=== PATIENT | female | born 2000 | race Caucasian/White ===

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

== ENCOUNTER 2021-01-04 12:50 | Outpatient (CLI) | payer OTHER ==
[2021-01-04 14:22] VITALS: BP 128/71; PULSE 74; RESP 16; TEMP 97.3
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
== END 2021-01-04 14:09 | disposition home or self-care (01) ==
LOC: FBPOP 12:50
PROVIDERS: ATTEND Obstetrics & Gynecology
DX: O99.891 Other specified diseases and conditions complicating pregnancy (principal); M79.671 Pain in right foot; Z3A.33 33 weeks gestation of pregnancy
CPT/HCPCS: 59025; G0463; 99213

== ENCOUNTER 2021-01-04 14:21 | Emergency (ER) | payer OTHER ==
[2021-01-04 14:35] VITALS: BP 146/69; PULSE 78; RESP 18; TEMP 98.9
[2021-01-04] MEDS ORDERED: ACETAMINOPHEN TAB 500 MG TAB PO STA (15:02)
--- NOTE | 2021-01-04 15:14 | ED ---
Lower Extremity Injury HPI - General Chief Complaint: Extremity Injury, Lower Stated Complaint: Fall R Foot injury 33 weeks Time Seen by Provider: 01/04/21 14:41 Source: patient Mode of arrival: ambulatory Limitations: no limitations - History of Present Illness Initial Comments: 20-year-old female patient who is 33 weeks presents to the emergency department today for evaluation of right ankle pain. Patient states she twisted her ankle this morning and fell down approximately 4 steps. Denies hitting her abdomen. Denies hitting her head or losing consciousness. She states she has been having right ankle swelling since the injury and is unable to bear weight or walk. Denies numbness or tingling to the foot. Denies any neck or back pa in. She was seen and cleared by labor and delivery prior to coming down. Denies any abdominal pain, abnormal vaginal bleeding or discharge. Does feel movement. Patient denies any chest pain, shortness of breath, dizziness, weakness, nausea, vomiting, or difficulties with bowel movements or urination. - Related Data Home Medications Medication Instructions Recorded Confirmed Pnv No.95/Ferrous Fum/Folic AC 1 each PO DAILY 01/04/21 01/04/21 [ Multivitamin Tablet] Allergies Allergy/AdvReac Type Severity Reaction Status Date / Time Penicillins Allergy Rash/Hives Verified 01/04/21 14:35 Review of Systems ROS Statement: Those systems with pertinent positive or pertinent negative responses have been documented in the HPI. ROS Other: All systems not noted in ROS Statement are negative. Past Medical History Past Medical History: Asthma History of Any Multi-Drug Resistant Organisms: None Reported Past Surgical History: No Surgical Hx Reported Past Psychological History: Depression Smoking Status: Former smoker Past Alcohol Use History: None Reported Past Drug Use History: None Reported General Exam Limitations: no limitations General appearance: alert, in no apparent distress, other (This is a well- developed, well-nourished adult female patient in no acute distress. Vital signs upon presentation are temperature 98.9F, pulse 78, respirations 18, blood pressure 146/69, pulse ox 98% on room air.) Head exam: Present: atraumatic, normocephalic, normal inspection Eye exam: Present: normal appearance, PERRL, EOMI. Absent: scleral icterus, conjunctival injection, nystagmus, periorbital swelling ENT exam: Present: normal exam, normal oropharynx, mucous membranes moist Neck exam: Present: normal inspection, full ROM, other (Nontender, no step-off, no deformity to firm midline palpation of the posterior cervical spine. Full range of motion without pain or limitation.). Absent: tenderness, meningismus, lymphadenopathy Respiratory exam: Present: normal lung sounds bilaterally. Absent: respiratory distress, wheezes, rales, rhonchi, stridor Cardiovascular Exam: Present: regular rate, normal rhythm, normal heart sounds. Absent: systolic murmur, diastolic murmur, rubs, gallop, clicks GI/Abdominal exam: Present: soft, normal bowel sounds, other (Gravid abdomen). Absent: distended, tenderness, guarding, rebound, rigid Extremities exam: Present: tenderness (Right medial and lateral malleolus), normal capillary refill, other (There is soft tissue swelling surrounding the right ankle and over the dorsal aspect of the right foot. No fifth metatarsal tenderness. No tarsal tenderness. Skin is pink, warm, dry. Cap refill less than 3 seconds. Pedal and posttibial pulses 2+. There is some proximal tib-fib tenderness.). Absent: normal inspection, full ROM (Diminished to the ankle due to increased pain with movement), pedal edema, joint swelling, calf tenderness Back exam: Present: normal inspection, other (Nontender, no step-off, no deformity to firm midline palpation of the thoracic and lumbar vertebrae. Full range of motion without pain or limitation.). Absent: vertebral tenderness Neurological exam: Present: alert, oriented X3, CN II-XII intact Psychiatric exam: Present: normal affect, normal mood Skin exam: Present: warm, dry, intact, normal color. Absent: rash Course Vital Signs 01/04/21 14:30 Temperature 98.9 F Pulse Rate 78 Respiratory 18 Rate Blood Pressure 146/69 O2 Sat by Pulse 98 Oximetry Procedures - Orthopedic Splinting/Casting Injury #1 Side: right Lower Extremity Injury Location: short leg, ankle Lower Extremity Immobilizer: posterior splint, stirrup splint, Timbo wrap, synthetic pre-padded splint Additional Comments: Neurovascular status intact after application. Skin to the toes is pink, warm, dry. Cap refill less than 3 seconds. She denies numbness or tingling. Medical Decision Making - Medical Decision Making 19-year-old female patient presents to the emergency department today for evaluation of right ankle injury. Physical examination did reveal diffuse soft tissue swelling around the right ankle. She did have medial and lateral malleolus tenderness. She had proximal tib-fib tenderness. Neurovascular status was intact. X-rays were obtained and did reveal a medial malleolus and posterior tibial fracture. She was placed in an OCL splint. Given crutches and instructions. She states instructed to follow-up with the customer contact specialist for further evaluation as soon as possible. She is and instructed not to remove the splint or to bear any weight on that leg. She is instructed take Tylenol for pain control. Return parameters were discussed in detail. She verbalizes understanding and agrees with this plan. Case discussed with my attending Dr. Sharpe. - Radiology Data Radiology results: report reviewed, image reviewed 2 views of the right tib-fib are obtained. Report is reviewed in its entirety. Impression by Dr. Cummings shows normal proximal to right tibia and fibula. Three-view x-ray of the right ankle are obtained. Report was reviewed in its entirety. Impression by Dr. Cummings shows medial malleolar fracture and posterior tibial fracture. Diffuse soft tissue swelling. Disposition Clinical Impression: Ankle fracture, bimalleolar, closed Disposition: HOME SELF-CARE Condition: Good Instructions (If sedation given, give patient instructions): Ankle Fracture (ED), Crutch Instructions (ED), Splint Care (ED) Additional Instructions: Rest and elevate the right leg. Apply ice 20 minutes at a time at least 4 times daily. Take Tylenol for pain control. Perform flexion and clenching of calf muscles to help prevent blood clot. Increase fluids. Follow-up with customer contact specialist for further evaluation as soon as possible, call first thing in the morning for an appointment. Leave splint in place until follow-up. Do not bear any weight on the ankle or foot. Return to the emergency department for any new, worsening, or concerning symptoms. Is patient prescribed a controlled substance at d/c from ED?: No Referrals: Nonstaff,Physician [Primary Care Provider] - 1-[address] MD [STAFF PHYSICIAN] - 1-2 days Time of Disposition: 16:24
--- NOTE | 2021-01-04 15:39 | XR ---
EXAMINATION TYPE: XR tibia fibula RT DATE OF EXAM: 01/04/2021 COMPARISON: None HISTORY: Twisted ankle falling down stairs TECHNIQUE: 2 view right tibia and fibula FINDINGS: No acute fracture or dislocation is evident within the field of view. The soft tissues appe ar normal. Distal metaphyseal portion of the tibia and fibula is out of the field of view. Follow up exams can be performed 7-10 days from acute trauma for continued pain. IMPRESSION: 1. Normal proximal to mid right tibia and fibula.
--- NOTE | 2021-01-04 15:40 | XR ---
EXAMINATION TYPE: XR ankle complete RT DATE OF EXAM: 01/04/2021 COMPARISON: None HISTORY: Fall downstairs pain TECHNIQUE: 3 view right ankle FINDINGS: There is a transverse fracture of the distal metaphyseal tibia with slight diastases. Ankle mortise appears intact. Posterior tibial fractures evident. There is soft tissue swelling over the a nkle slightly greater over the medial malleolus. IMPRESSION: 1. Medial malleolar fracture and posterior tibial fracture. 2. Diffuse soft tissue swelling.
== END 2021-01-04 16:38 | disposition home or self-care (01) ==
LOC: EC 14:21
DX: S82.841A Displaced bimalleolar fracture of right lower leg, initial encounter for closed fracture (principal); J45.909 Unspecified asthma, uncomplicated; Z87.891 Personal history of nicotine dependence; X50.1XXA Overexertion from prolonged static or awkward postures, initial encounter
CPT/HCPCS: 29515; 99283

== ENCOUNTER → 2021-01-09 | Outpatient (CLI) | payer OTHER ==
[2021-01-09 12:29] LABS: Potassium 4.4 mmol/L (3.5-5.1)
[2021-01-09 12:39] LABS: Basophils % (A) 0 %; Eosinophils # (A) 0.1 k/uL (0-0.7); Eosinophils % (A) 1 %; HCT 34.2 % (34.0-46.0); HGB 11.5 gm/dL (11.4-16.0); Lymphocytes # (A) 2.1 k/uL (1.0-4.8); Lymphocytes % (A) 24 %; MCH 30.8 pg (25.0-35.0); MCHC 33.8 g/dL (31.0-37.0); MCV 91.1 fL (80.0-100.0); Mean Platelet Volume 7.6; Monocytes # (A) 0.4 k/uL (0-1.0); Monocytes % (A) 4 %; Neutrophils # (A) 6.2 k/uL (1.3-7.7); Neutrophils % (A) 70 %; Platelet Count 233 k/uL (150-450); RBC 3.75 m/uL (3.80-5.40); RDW 13.3 % (11.5-15.5); WBC 8.8 k/uL (4.0-11.0)
== END ==
LOC: LABPAT 11:00
PROVIDERS: ATTEND Orthopaedic Surgery
DX: Z01.818 Encounter for other preprocedural examination (principal); S82.51XA Displaced fracture of medial malleolus of right tibia, initial encounter for closed fracture
CPT/HCPCS: 36415; 80051; 85025

== ENCOUNTER 2021-01-10 10:37 | Day surgery (SDC) | payer OTHER ==
[2021-01-09 09:06] VITALS: BMI 33.9
--- NOTE | 2021-01-09 09:18 | HP ---
HISTORY AND PHYSICAL CHIEF COMPLAINT: Right ankle pain. HISTORY OF PRESENT ILLNESS: The patient is a 20-year-old female who presents with right ankle pain after an injury on 01/04/2021. She notes her ankle gave out. She fell downstairs at home. Initially, she was seen in the emergency room and was placed in a splint. She denies previous injury. She has been nonweightbearing since with crutches. PAST MEDICAL HISTORY: Significant anxiety. PAST SURGICAL HISTORY: Negative. CURRENT MEDICATIONS: None. ALLERGIES: She has allergies to PENICILLIN. FAMILY HISTORY: Negative. SOCIAL HISTORY: Significant for previous tobacco use. REVIEW OF SYSTEMS: Sixteen-point review of systems otherwise reviewed and is noncontributory. PHYSICAL EXAMINATION: On examination, the patient is approximately 5 feet 6 inches, 205 pounds of endomorphic habitus. HEENT exam is nonfocal. Neck is supple. She has painless passive motion of the right hip. She is nontender about the right knee and proximal fibula. On examination of her right ankle, she has moderate medial swelling. Skin is intact. She is tender over the medial malleolus. She has mild lateral swelling. She is tender about the ATFL and PTFL. No mid or forefoot tenderness is noted. Her distal neurovascular exam appears intact in the right lower extremity. X-rays of the right ankle from 01/04/2021 were reviewed and showed a displaced medial malleolar fracture along with a posterior malleolar fracture involving 15% of the articular surface. It is minimally displaced. IMPRESSION: 1. Right medial malleolar ankle fracture/posterior malleolar fracture. 2. . RECOMMENDATIONS: I talked to the patient at length regarding her condition and treatment options. At this point, would recommend proceeding with surgery. We will plan to proceed with open reduction and internal fixation of the medial malleolar fracture. Her telephone clerks supervisor was contacted and recommended checking heart tones before and after the procedure in addition to potentially utilizing spinal versus regional anesthesia. Risks and benefits were discussed at length in layman's terms. MMODL / IJN: [id number] /
[~2021-01-10 10:37] MED LIST: HYDROmorphone 0.5 MG/0.5 ML SYRINGE IVP PRN; ONDANSETRON 4 MG/2 ML VIAL IVP ONE; Pre Op ABX Message 1 EACH MISC MISCELLANE ONE; fentaNYL (PF) 50 MCG/ML 2 ML AMP IV PRN
[2021-01-10] MEDS ORDERED: LIDOCAINE 1% (10MG/ML) FOR IV START INTRADERMA ONE (11:20)
[2021-01-10] MEDS: LACTATED RINGERS 1,000 ML IV SCH ×2 (11:20→18:55)
[2021-01-10] MEDS ORDERED: PHENYLEPHRINE-0.9% NACL SYG 1,000 MCG/10 ML SYRINGE ONE (13:07)
[2021-01-10] MEDS ORDERED: CLINDAMYCIN 150 MG/ML 4 ML VIAL IVPB ONE (13:16)
[2021-01-10] MEDS ORDERED: CLINDAMYCIN 600 MG in SODIUM CHLORIDE 0.9% 1,000 ML IRRIGATION ONE (13:49)
[2021-01-10] MEDS ORDERED: LACTATED RINGERS 1,000 ML IV ONE (13:50)
[2021-01-10] MEDS ORDERED: BUPIVACAINE (PF) 0.25% 30 ML VIAL SQ ONE (14:39)
--- NOTE | 2021-01-10 15:00 | P.OP ---
Date of Procedure: 01/10/21 Preoperative Diagnosis: Displaced right medial malleolar ankle fracture Postoperative Diagnosis: Same Procedure(s) Performed: Open reduction and internal fixation right medial malleolar ankle fracture Implants: Arthrex 4.0 x 44 mm partially threaded cancellus screws 2 Anesthesia: local, spinal Surgeon: Javier Lane Estimated Blood Loss (ml): 5 Pathology: none sent Condition: stable Disposition: PACU Indications for Procedure: The patient is a 20-year-old female who presents after falling on stairs injuring her right ankle. She was noted to have a displaced right medial malleolar ankle fracture on evaluation. A discussion of the risks and benefits of operative intervention was made with patient. She opted to proceed. Operative risks to include infection, neurovascular injury, development of blood clots, possible development nonunion/malunion need for subsequent procedures was discussed. Informed consent was obtained. Her instrument repair specialist noted it was safe to proceed with surgery utilizing a spinal anesthetic along with checking the fe doug heart tones before and after the procedure. Operative Findings: As below Description of Procedure: Patient was brought to the operating room, and after induction of spinal anesthesia the right lower extremity was prepped and draped in normal fashion. The tourniquet was inflated to 270 mmHg. A 4 cm incision was then centered over the medial malleolus. Skin was incised sharply. Subcutaneous tissues were divided bluntly. Electrocautery was used for hemostasis. The fracture site was identified and cleaned of clot and debris. I did elevate the periosteum to help facilitate reduction. The medial talar dome was inspected. There was some comminution of the fracture along the medial articular surface. Fracture was reduced with a dental pick. 2 threaded guidewires were placed in a parallel fashion stabilizing the fracture position. Fluoroscopy was used to check the adequacy reduction of the fracture and the joint surface. A cannulated drill was then utilized over this. 4.0 x 44 mm partially threaded cancellus screws were inserted over the guidewires. The positioning and fracture reduction was checked fluoroscopy on the AP, mortise, and lateral views. I felt I had adequate reduction and fixation. The wound was irrigated normal saline. The subcu tissues were reapproximated interrupted 3-0 Vicryl sutures. The skin was reapproximated with 3-0 subcuticular Prolene suture. Steri-Strips were applied. A sterile dressing was applied in addition to a bulky splint. The tourniquet was deflated with the proximal piece 58 minutes total tourniquet time. Blood loss was estimated 5 mL. No complications were incurred. Sponge and needle counts were correct in the case. Franc HESS during the major components the case to include positioning, exposure, reduction, and implantation along splint placement.
[2021-01-10 15:08] LABS: Glucose,Whole Blood 71 mg/dL (75-99)
[2021-01-10 15:10] VITALS: RESP 16
--- NOTE | 2021-01-10 15:21 | XR ---
Limited right ankle HISTORY: Screw placement 2 intraoperative C-arm images document the procedure
--- NOTE | 2021-01-10 15:21 | FL ---
Fluoroscopy HISTORY: Pain 13 seconds fluoroscopy time supplied to the referring clinician. 2 intraoperative C-arm images docum ent the procedure. See dictated report from orthopedic surgery.
[2021-01-10] MEDS: Acetaminophen-Codeine 300-30mg TAB PO PRN ×2 (16:20→20:23)
--- NOTE | 2021-01-10 17:12 | P.OBCN ---
History of Present Illness Consult date: 01/10/21 Requesting physician: Javier Lane Reason for consult: other (Status post ORIF) Chief complaint: Foot fracture at 34 weeks History of present illness: Monica is seen and evaluated. She is a very pleasant 20-year-old 1 para 0 who underwent an ORIF of the right earlier today status post fall approximately 5 days ago. She sees a physician out of [place] for her they did not offer to have her have the surgery down there therefore she had it here. Her NST was reactive and the baby appears to be doing well. We'll continue monitoring intermittently through the night. As long as everything continues to be fine she should be able to go home. She did have a spinal anesthetic so very limited risk for the baby from that standpoint. All the questions are answered for her at this time and will continue observational care. Past medical history none, past surgical history none, ALLERGIES none, social history none, family history noncontributory On physical exam heart regular lungs are clear. Abdomen soft and gravid uterus is noted. She does have a cast on her right leg. Assessment intrauterine at 34 weeks category 1 tracing was noted earlier today with a reactive nonstress test. Plan continue care with expected discharged home tomorrow Past Medical History Past Medical History: Asthma Additional Past Medical History / Comment(s): 34 wks History of Any Multi-Drug Resistant Organisms: None Reported Past Surgical History: No Surgical Hx Reported Past Anesthesia/Blood Transfusion Reactions: No Reported Reaction Smoking Status: Former smoker Medications and Allergies Home Medications Medication Instructions Recorded Confirmed Type Pnv No.95/Ferrous Fum/Folic AC 1 each PO DAILY 01/04/21 01/09/21 History [ Multivitamin Tablet] HYDROcodone/APAP 5-325MG [[place] 1 tab PO Q6HR PRN 01/10/21 01/10/21 History 5-325] Allergies Allergy/AdvReac Type Severity Reaction Status Date / Time Penicillins Allergy Rash/Hives Verified 01/10/21 16:08 Exam Osteopathic Statement: *. No significant issues noted on an osteopathic struc tural exam other than those noted in the History and Physical/Consult. Vital Signs Temp Pulse Pulse Resp BP BP Pulse Ox 01/10/21 15:23 85 16 118/60 99 01/10/21 15:08 78 16 108/64 99 01/10/21 14:53 97.6 F 63 12 120/68 97 01/10/21 11:12 98.7 F 90 16 115/66 94 L Intake and Output 01/10/21 01/10/21 01/10/21 06:59 14:59 22:59 Intake Total 1901 Output Total 5 Balance 1896 Intake: IV 1901 Output: Estimated Blood Loss 5 Other: Weight 91.3 kg Results Abnormal Lab Results - Last 24 Hours (Table) 01/10/21 Range/Units 15:06 POC Glucose (mg/dL) 71 L (75-99) mg/dL
[2021-01-10] MEDS ORDERED: ACETAMINOPHEN TAB 325 MG TAB PO PRN (17:37)
[2021-01-10] MEDS ORDERED: Acetaminophen-Codeine 300-30mg TAB PO PRN (21:23)
--- NOTE | 2021-01-11 08:42 | P.PN ---
Subjective Progress Note Date: 01/11/21 Principal diagnosis: Status post ORIF right ankle medial malleolar fracture Patient was evaluated today on the mother-baby unit, she is resting comfortably in bed. She states that she's having some discomfort in the ankle but is not too severe. The postop splint is in good position and condition. She did have an episode of nausea and vomiting last night, this has improved. She denies any headaches, lightheadedness, chest pain or shortness of breath. Objective - Vital Signs Vital signs: Vital Signs Temp 96.9 F L 01/11/21 00:00 Pulse 78 01/11/21 00:00 Resp 16 01/11/21 00:00 BP 129/61 01/11/21 00:00 Pulse Ox 99 01/11/21 00:00 Intake & Output 01/10/21 01/11/21 01/11/21 18:59 06:59 18:59 Intake Total 1901 Output Total 655 Balance 1246 Weight 91.3 kg Intake: IV 1901 Output: Urine 650 Estimated Blood Loss 5 Other: # Voids 1 1 - Exam Right lower extremity: Postop splint is in good position and condition. Patient is able wiggle the toes no difficulty. Her sensation light touch both proximal and distal to the splint are intact. Skin is warm to touch. - Labs Labs: Abnormal Lab Results - Last 24 Hours (Table) 01/10/21 Range/Units 15:06 POC Glucose (mg/dL) 71 L (75-99) mg/dL Assessment and Plan Assessment: Postoperative day 1 status post ORIF right ankle medial malleolar fracture Plan: Pain control, recommended use of [id number] Tylenol, she is also prescribed [place] 5 mg/325 mg from her LUBE WORKER doctor Recommend icing and elevating Continue nonweightbearing status, walker or crutches as needed Plan for follow-up in the outpatient setting in 2 weeks for reevaluation, cast removal and x-ray Time with Patient: Less than 30
--- NOTE | 2021-01-11 08:48 | P.DS ---
Providers Date of admission: 01/10/2021 Expected date of discharge: 01/11/21 Attending physician: Javier Lane Consults: 01/10/21 15:06 Consult Physician Routine Consulting Provider: Hubert James Reason/Comments: Do you want consulting provider notified?: Yes Primary care physician: Stated None Hospital Course: Date of admission: 01/10/2021 Date of discharge: 01/11/2021 Admission diagnosis: Status post ORIF right ankle medial malleolar fracture Discharge diagnosis: Same Attending physician: Dr. Lane Surgical procedures: ORIF right ankle medial malleolus fracture Brief history: Patient is a 20-year-old female who was evaluated in the outpatient setting by Dr. Lane afternoon injury to her right ankle. It was determined she had a displaced medial malleolus fracture the right ankle, treatment options were discussed, she was scheduled for surgery for 01/10/2021. Hospital course: Details of patient's surgery can be found in operative report. Patient tolerated the procedure well and was subsequently transported to the mother/baby unit . Patient's orthopeidc and medical care was provided daily. Patient had daily laboratory tests performed for evaluation of overall blood counts. Patient had daily physical therapy to include strengthening range of motion as well as education with walker ambulation. Patient was noted to have a relatively uneventful postoperative course. Patient reported satisfactory pain control with oral pain medications by postoperative day 0. Patient showed satisfactory progress with physical therapy. Patient moved steadily through the program and had no difficulty meeting the goals by postoperative day 1. Given patient's otherwise satisfactory course and having met physical therapy goals, plan is to discharge patient home on postoperative day 1. Discharge condition/disposition: Patient will be discharged home in stable condition. Discharge medications: Instructions are given on resumption of patient's normal daily medications per primary care recommendation, in addition patient will be prescribed no new medication. Discharge instructions: 1. Nonweightbearing right lower extremity, utilize crutches or walker 2. Do not remove postop splint, keep covered while showering 3. Ice and elevate when necessary. Do not exceed 20 minutes per hour with ice pack. 4. Pain medication has potential to cause constipation. Increase oral fluid and fiber intake. Contact primary care provider if you have not had a bowel movement within 48 hours after discharge 5. Follow up in office at 2 weeks postop with Dejuan Kingsley PA-C/Franc London PA-C 6. Follow up with your primary care doctor 7-10 days after discharge. 7. Contact [facility] with any questions, . Procedures: Open reduction internal fixation right ankle medial malleolar fracture Patient Condition at Discharge: Good Plan - Discharge Summary Discharge Rx Participant: Yes New Discharge Prescriptions: No Action Pnv No.95/Ferrous Fum/Folic AC [ Multivitamin Tablet] 1 each PO DAILY HYDROcodone/APAP 5-325MG [[place] 5-325] 1 tab PO Q6HR PRN PRN Reason: Pain Discharge Medication List Pnv No.95/Ferrous Fum/Folic AC [ Multivitamin Tablet] 1 each PO DAILY 01/04/21 [History] HYDROcodone/APAP 5-325MG [[place] 5-325] 1 tab PO Q6HR PRN 01/10/21 [History] Follow up Appointment(s)/Referral(s): Ramin Kingsley PAC [PHYSICIAN [employer]] - 2 Weeks Activity/Diet/Wound Care/Special Instructions: Orthopedic discharge instructions: 1. Ice and elevate the lower extremity often 2. Nonweightbearing right lower extremity 3. Utilize crutches or walker for ambulation 4. Plan for follow-up at [facility] 2 weeks for clinical and x-ray evaluation Discharge Disposition: HOME SELF-CARE
[2021-01-11 09:50] VITALS: BP 128/77; PULSE 82; TEMP 97.5
[2021-01-11] MEDS ORDERED: ACETAMINOPHEN TAB 325 MG TAB PO PRN (15:08)
== END 2021-01-11 10:15 | disposition home or self-care (01) ==
LOC: OR 10:37 → 4FBP 15:24 → OR 01-11 10:15
PROVIDERS: ATTEND Orthopaedic Surgery
DX: O9A.213 Injury, poisoning and certain other consequences of external causes complicating pregnancy, third trimester (principal); S82.51XA Displaced fracture of medial malleolus of right tibia, initial encounter for closed fracture; S82.891A Other fracture of right lower leg, initial encounter for closed fracture; J45.909 Unspecified asthma, uncomplicated; Z3A.34 34 weeks gestation of pregnancy; Z88.0 Allergy status to penicillin; Z87.891 Personal history of nicotine dependence; W10.9XXA Fall (on) (from) unspecified stairs and steps, initial encounter; Y92.009 Unspecified place in unspecified non-institutional (private) residence as the place of occurrence of the external cause
CPT/HCPCS: 27766; 73600; C1713; J2405; J2370

== ENCOUNTER 2022-02-13 17:41 | Outpatient (CLI) | payer OTHER ==
[2022-02-13 18:32] LABS: Basophils % (A) 0 %; Eosinophils # (A) 0.1 k/uL (0-0.7); Eosinophils % (A) 1 %; HCT 35.7 % (34.0-46.0); HGB 11.5 gm/dL (11.4-16.0); Lymphocytes # (A) 2.3 k/uL (1.0-4.8); Lymphocytes % (A) 22 %; MCH 28.8 pg (25.0-35.0); MCHC 32.1 g/dL (31.0-37.0); MCV 89.5 fL (80.0-100.0); Mean Platelet Volume 8.4; Monocytes # (A) 0.5 k/uL (0-1.0); Monocytes % (A) 4 %; Neutrophils # (A) 7.7 k/uL (1.3-7.7); Neutrophils % (A) 72 %; Platelet Count 223 k/uL (150-450); RBC 3.99 m/uL (3.80-5.40); RDW 14.3 % (11.5-15.5); WBC 10.7 k/uL (4.0-11.0)
[2022-02-13 18:44] LABS: Amphetamine Screen,Urine Not Detected (NotDetected); Barbiturate Screen,Urine Not Detected (NotDetected); Benzodiazepines Screen,Urine Not Detected (NotDetected); Cocaine Screen,Urine Not Detected (NotDetected); Methadone Screen, Urine Not Detected (NotDetected); Opiate Screen,Urine Not Detected (NotDetected); Oxycodone Screen, Urine Not Detected (NotDetected); Phencyclidine Screen,Urine Not Detected (NotDetected); Tricyclic Antidepressant,Urine Not Detected (NotDetected); Urn Cannabinoid Scrn Detected (NotDetected)
[2022-02-13 18:45] LABS: ALT 11 U/L (4-34); AST 15 U/L (14-36); African American GFR (CKD) >90 (>60 ml/min/1.73 sqM); Blood Urea Nitrogen 4 mg/dL (7-17); LDH 330 U/L (313-618); Non-African American GFR(CKD) >90 (>60 ml/min/1.73 sqM); Uric Acid 4.4 mg/dL (3.7-7.4)
[2022-02-13 18:48] LABS: Creatinine,Urine Random 62.4 mg/dL; Protein/Creatinine Ratio,Urine 0.144
[2022-02-13 18:57] LABS: Appearance,Urine Clear (Clear); Bacteria,Urine Rare /hpf; Bilirubin,Urine Negative (Negative); Blood,Urine Negative (Negative); Color,Urine Yellow; Glucose,Urine (UA) Negative (Negative); Ketones,Urine Negative (Negative); Leukocyte Esterase,Urine Small (Negative); Mucus,Urine Rare /hpf; Nitrite,Urine Negative (Negative); PH, Urine 7.5 (5.0-8.0); Protein,Urine Negative (Negative); RBC,Urine 1 /hpf (0-5); Specific Gravity,Urine 1.012 (1.001-1.035); Squamous Epithelial Cell,Urine 1 /hpf (0-4); Urobilinogen,Urine <2.0 mg/dL (<2.0); WBC,Urine 3 /hpf (0-5)
--- NOTE | 2022-02-13 19:05 | US ---
EXAMINATION TYPE: US OB >= 14 wk fetus DATE OF EXAM: 02/13/2022 COMPARISON: None CLINICAL HISTORY: no carePatient is with no care for this . Patient s park she had an ultrasound elsewhere in November. TECHNIQUE: Transabdominal (TA) GESTATIONAL AGE / DATING Physician Established: (35 weeks/4 days) EDC: 03/16/22 Dates by LMP: LMP unknown Dates by First Scan: No previous this is first scan here Dates by Current Scan: (35 weeks/2 days) EDC: 03/18/22 SURVEY IUP: Single PLACENTA: Posterior PREVIA: No Previa JOSELUIS: 11.02 cm Normal CERVICAL LENGTH (transabdominal: norm > 3.0cm): 3.83 cm BIOMETRY PRESENTATION: Breech LIE: Longitudinal BPD: 8.61 cm 34 weeks / 6 days HC: 31.72 cm 35 weeks / 5 days AC: 31.20 cm 35 weeks / 1 days FL: 6.85 cm 35 weeks / 2 days ESTIMATED WEIGHT IN GRAMS: 2608 grams ESTIMATED WEIGHT IN LBS/OZ: 5 lbs. 12 oz. WEIGHT PERCENTAGE BASED ON ESTABLISHED DATES: 37% HC/AC: 1.02 Normal FL/AC: 22% Normal HEART RATE: 149 bpm RHYTHM: Normal IMPRESSION: Amniotic fluid is adequate. The ultrasound gestational age is 35 weeks and 2 days. No complicating pr ocess seen.
[2022-02-13 19:14] VITALS: BP 133/80; PULSE 99; RESP 17; TEMP 97.4
--- NOTE | 2022-02-14 04:44 | P.MSEPDOC ---
Presenting Problems - Arrival Data Date of Arrival on Unit: 02/13/22 Time of Arrival on Unit: 17:41 Mode of Transport: Ambulatory - Complaint OB-Reason for Admission/Chief Complaint: Pain Medical History - Information : 2 Para: 1 Term: 0 : 0 Abortions: Spontaneous or Elective: 0 Number of Living Children: 1 - Gestational Age Gestational Age by GENEVIEVE (wks/days): 35 Weeks and 4 Days - History Complications: No Care Review of Systems - Review of Systems Constitutional: No problems Breast: No problems ENT: No problems Cardiovascular: No problems Respiratory: No problems Gastrointestinal: No problems Genitourinary: No problems Musculoskeletal: No problems Neurological: No problems Skin: No problems Vital Signs - Temperature Temperature: 97.4 F Temperature Source: Axillary - Pulse Right Brachial Pulse Rate: 99 Pulse Assessment Method: Automatic Cuff - Respirations Respiratory Rate: 17 Oxygen Delivery Method: Room Air O2 Sat by Pulse Oximetry: 99 - Blood Pressure Right Arm Blood Pressure: 133/80 Blood Pressure Mean: 97 Blood Pressure Source: Automatic Cuff Medical Screen Scoring - Cervical Exam Dilation (cm): 0 - Assessment - Baby A Baseline FHR: 135 Heart Rate - NICHD Category: Category I (Normal) NST: Reactive Physician Notification - Physician Notified Physician Notified Date: 02/13/22 Physician Notified Time: 19:00 Physician: Han Taveras - Notification Comment Comment: [facility] labs, UA, UDS, done, and ultrasound performed, cervix closed, pt discharged home Maternal Triage Index - Maternal Triage Index Presenting for scheduled procedure w/no complaint: No - Stat/Priority 1 Stat Priority 1: No - Urgent/Priority 2 Urgent Priority 2: No - Prompt/Priority 3 Prompt Priority 3: Yes Criteria Met for Priority 3: GA 35 3/7, lower abd and back pain Disposition - Disposition OB Disposition: Triage, Discharge to home, Written follow up instructions reviewed Discharge Date: 02/13/22 Discharge Time: 19:05 I agree with the RN Medical Screening Exam: Yes Case reviewed; plan agreed upon as documented in EMR&OBIX.: Yes Diagnosis: RELATED CONDITIONS, UNSPECIFIED, THIRD TRIMESTER (This patient presents in transfer from [facility] for evaluation of . Patient presented to this hospital with stating that she had some limited care at [facility] has a history apparently of preeclampsia. Patient was having some abdominal pain. Complete evaluation here includes ultrasound which was normal consistent with 35 weeks. Preeclampsia labs were normal. Blood pressures were normal. Toxicology screen was positive for marijuana. This time there is no evidence of maternal or compromise. Patient's felt the see stable for discharge home follow up with her physician at [facility].)
== END 2022-02-13 19:05 | disposition home or self-care (01) ==
LOC: FBPOP 17:41
PROVIDERS: ATTEND Obstetrics & Gynecology
DX: O26.893 Other specified pregnancy related conditions, third trimester (principal); R10.30 Lower abdominal pain, unspecified; M54.9 Dorsalgia, unspecified; Z3A.35 35 weeks gestation of pregnancy; Z88.0 Allergy status to penicillin
CPT/HCPCS: 59025; 36415; 82570; 84156; 82565; 83615; 84450; 84460; 84520; 84550; 85025; 81001; 80306; 76805; G0463; 99215

== ENCOUNTER → 2022-03-09 | Outpatient (CLI) | payer OTHER ==
[2022-03-09 02:22] LABS: Basophils % (A) 0 %; Eosinophils # (A) 0.1 k/uL (0-0.7); Eosinophils % (A) 1 %; HCT 34.2 % (34.0-46.0); HGB 10.9 gm/dL (11.4-16.0); Lymphocytes % (A) 21 %; MCH 27.9 pg (25.0-35.0); MCHC 31.9 g/dL (31.0-37.0); MCV 87.5 fL (80.0-100.0); Mean Platelet Volume 8.5; Monocytes # (A) 0.5 k/uL (0-1.0); Monocytes % (A) 6 %; Neutrophils # (A) 6.6 k/uL (1.3-7.7); Neutrophils % (A) 70 %; Platelet Count 218 k/uL (150-450); RBC 3.91 m/uL (3.80-5.40); RDW 14.7 % (11.5-15.5); WBC 9.4 k/uL (4.0-11.0)
[2022-03-09 02:37] LABS: Amorphous Sediment,Urine Rare /hpf; Amphetamine Screen,Urine Not Detected (NotDetected); Appearance,Urine Cloudy (Clear); Bacteria,Urine Occasional /hpf; Barbiturate Screen,Urine Not Detected (NotDetected); Benzodiazepines Screen,Urine Not Detected (NotDetected); Bilirubin,Urine Negative (Negative); Blood,Urine Negative (Negative); Cocaine Screen,Urine Not Detected (NotDetected); Color,Urine Yellow; Glucose,Urine (UA) Negative (Negative); Ketones,Urine Negative (Negative); Leukocyte Esterase,Urine Large (Negative); Methadone Screen, Urine Not Detected (NotDetected); Mucus,Urine Rare /hpf; Nitrite,Urine Negative (Negative); Opiate Screen,Urine Not Detected (NotDetected); Oxycodone Screen, Urine Not Detected (NotDetected); PH, Urine 6.5 (5.0-8.0); Phencyclidine Screen,Urine Not Detected (NotDetected); Protein,Urine Trace (Negative); RBC,Urine 10 /hpf (0-5); Specific Gravity,Urine 1.014 (1.001-1.035); Squamous Epithelial Cell,Urine 2 /hpf (0-4); Tricyclic Antidepressant,Urine Not Detected (NotDetected); Urn Cannabinoid Scrn Detected (NotDetected); Urobilinogen,Urine <2.0 mg/dL (<2.0); WBC,Urine 60 /hpf (0-5)
[2022-03-09 02:43] VITALS: BP 133/79; PULSE 90; RESP 16; TEMP 97.9
[2022-03-09 09:25] LABS: Hepatitis B Surface Antigen Nonreactive (Nonreactive)
[2022-03-09 10:53] LABS: HIV 2 AB Non-Reactive (Non-Reactive); HIV AB P24 Non-Reactive (Non-Reactive); HIV P24 AG Non-Reactive (Non-Reactive)
[2022-03-09 14:27] LABS: C. trachomatis,PCR Negative (Neg,Equiv); Chlamydia trachomatis Source Urine; N. gonorrhoeae,PCR Negative (Neg,Equiv); Neisseria Source Urine
--- NOTE | 2022-04-08 10:52 | P.MSEPDOC ---
Presenting Problems - Arrival Data Date of Arrival on Unit: 03/09/22 Time of Arrival on Unit: 00:09 Mode of Transport: Ambulatory - Complaint OB-Reason for Admission/Chief Complaint: Possible Onset of Labor, Rule Out SROM Medical History - Information : 2 Para: 1 Term: 1 : 0 Abortions: Spontaneous or Elective: 0 Number of Living Children: 1 - Gestational Age Gestational Age by GENEVIEVE (wks/days): 39 Weeks and 0 Days - History Complications: No Care Review of Systems - Review of Systems Constitutional: No problems Breast: No problems ENT: No problems Cardiovascular: No problems Respiratory: No problems Gastrointestinal: No problems Genitourinary: No problems Musculoskeletal: No problems Neurological: No problems Skin: No problems Vital Signs - Temperature Temperature: 97.9 F Temperature Source: Temporal Artery Scan - Pulse Right Pulse Oximetery Pulse Rate: 90 Pulse Assessment Method: Pulse Oximetry - Respirations Respiratory Rate: 16 Oxygen Delivery Method: Room Air O2 Sat by Pulse Oximetry: 98 - Blood Pressure Right Arm Blood Pressure: 133/79 Blood Pressure Mean: 97 Blood Pressure Source: Automatic Cuff Medical Screen Scoring - Cervical Exam Dilation (cm): 3 Effacement (%): 60 Station: -2 Membranes: Intact - Uterine Contractions Frequency From (mins): 1 Frequency To (mins): 3 Duration From (seconds): 60 Duration To (seconds): 130 Intensity: Mild Resting: Soft to palpation - Assessment - Baby A Baseline FHR: 135 Heart Rate - NICHD Category: Category I (Normal) NST: Reactive Physician Notification - Physician Notified Physician Notified Date: 03/09/22 Physician Notified Time: 01:31 Physician: Gasper Shipley New Order Received: Yes - Notification Comment Comment: Dr. Shipley notified of pt's arrival to triage with c/o irregular, painful UC's with vaginal pressure and possible ROM. POC discussed at this time. Pt with limited/no care, orders to have labwork drawn d/t pt planning on delivery here at [facility]. RN to recheck SVE in 1 hour, if unchanged pt can D/C home. POC discussed with pt, who verbalized understanding and agreement. Maternal Triage Index - Maternal Triage Index Presenting for scheduled procedure w/no complaint: No - Stat/Priority 1 Stat Priority 1: No - Urgent/Priority 2 Urgent Priority 2: No - Prompt/Priority 3 Prompt Priority 3: No - Non-Urgent/Priority 4 Non-Urgent Priority 4: Yes Criteria Met for Priority 4: Pt with GENEVIEVE 03/16/22 here at 39.0 weeks of gestation with c/o irregular, painful UC's with vaginal pressure and possible ROM. Disposition - Disposition OB Disposition: Discharge to home Discharge Date: 03/09/22 Discharge Time: 02:42 I agree with the RN Medical Screening Exam: Yes Physician's MSE Comment: I have neither seen nor examined the patient. Case reviewed; plan agreed upon as documented in EMR&OBIX.: Yes Diagnosis: RELATED CONDITIONS, UNSPECIFIED, THIRD TRIMESTER
== END | disposition home or self-care (01) ==
LOC: FBPOP 00:09
PROVIDERS: ATTEND Obstetrics & Gynecology
DX: O26.93 Pregnancy related conditions, unspecified, third trimester (principal); Z3A.39 39 weeks gestation of pregnancy
CPT/HCPCS: 59025; 84112; 36415; 86900; 86901; 86762; 82947; 85025; 86850; 87340; 81001; 87491; 87591; 80306; 87390; G0463; 99213